=== PATIENT | female | born 1930 | race Caucasian/White ===

== ENCOUNTER 2020-11-29 07:23 | Outpatient (CLI) | payer OTHER | END 2020-11-29 07:36 | disposition home or self-care (01) | LOC: SONOGRAMA 07:23 → MAMO-SONO 07:45 | PROVIDERS: ATTEND Internal Medicine Gastroenterology | DX: K30 Functional dyspepsia (principal); R11.0 Nausea; N39.0 Urinary tract infection, site not specified ==